=== PATIENT | male | born 1930 | race Two or more races ===

== ENCOUNTER 2016-10-18 19:46 | Emergency (ER) | payer OTHER ==
[2016-10-18 20:00] VITALS: RESP 16; TEMP 97.3; O2SAT 95
[2016-10-18] MEDS ORDERED: ONDANSETRON 4 MG/2 ML VIAL IVP ONE (20:05)
[2016-10-18] MEDS ORDERED: NS 1,000 ML IV ONE (20:05)
--- NOTE | 2016-10-18 20:08 | EDPHY ---
H & P Stated Complaint: N/V/D x 2 weeks, decreased appetite, loss of weight. Time Seen by Provider: 10/18/16 19:56 HPI/ROS: CHIEF COMPLAINT: Weakness and vomiting History by patient and his daughter HISTORY OF PRESENT ILLNESS: 86-year-old man with diabetes and hypertension who presents complaining of 2 or more weeks of increasing generalized weakness, malaise, poor appetite with nausea and vomiting almost every time that he eats. He has lost up to 30 lb over the last 2-4 weeks. He denies any fever or night sweats. His daughter thought he had some chills this afternoon. Today he was unable to keep down even broth. He denies any abdominal pain with this. He said when symptoms began a few weeks ago he did have some diarrhea but this is resolved. He denies any hematemesis or melena or hematochezia. Denies any fever or night sweats. He denies any chest pain, cough or difficulty breathing. His daughter is unsure if he has been taking his blood pressure medicine because of the nausea and vomiting. REVIEW OF SYSTEMS: As in HPI, and all other systems reviewed and are negative Source: Patient, Family - Personal History Current Tetanus Diphtheria and Acellular Pertussis (TDAP): Unsure - Medical/Surgical History Hx Asthma: No Hx Chronic Respiratory Disease: No Hx Diabetes: Yes Hx Cardiac Disease: Yes Hx Renal Disease: No Hx Cirrhosis: No Hx Alcoholism: No Hx HIV/AIDS: No Hx Splenectomy or Spleen Trauma: No Other PMH: DIABETES, HTN - Family History Significant Family History: No pertinent family hx - Social History Smoking Status: Never smoked - Physical Exam Exam: General Appearance: Alert, thin, chronically ill-appearing. Eyes: Pupils equal and round , positive pallor , no injection. ENT, Mouth: Mucous membranes moist but pale Respiratory: Normal, effort, lungs are clear to auscultation. No wheezes, rales or rhonchi. Cardiovascular: Regular rate and rhythm. S1, S2, no murmurs, gallops or rubs appreciated Gastrointestinal: Abdomen is soft and nontender, no masses, bowel sounds normal. Rectal: Normal tone, brown stool, large firm prostate Back: No CVA tenderness, no bony tenderness Neurological: Awake, alert and oriented x 3, no pronator drift, normal gait, no pronator drift Skin: Warm and dry, no rashes. Musculoskeletal: No deformities or tenderness. Extremitie:s full range of motion, no edema Psychiatric: Patient has normal affect, there is no agitation. Constitutional: Initial Vital Signs Temperature (C) 36.3 C 10/18/16 19:57 Heart Rate 65 10/18/16 19:57 Respiratory Rate 16 10/18/16 19:57 Blood Pressure 121/55 H 10/18/16 19:57 O2 Sat (%) 95 10/18/16 19:57 O2 Delivery Mode Room Air Allergies/Adverse Reactions: No Known Allergies Allergy (Unverified 10/18/16 19:56) Home Medications: Medication Instructions Recorded Amlodipine Bes/Olmesartan Med 1 each PO 04/19/11 [Abhishek 10-40 mg Tablet] SITAGLIPTIN PHOS/METFORMIN HCL 1 each PO 04/19/11 [Janumet 50-1,000 Mg Tablet] Ondansetron Odt [Zofran Odt 4 mg 4 mg PO Q4 PRN #12 tab 10/18/16 (*)] Medical Decision Making - Diagnostics Imaging Results: Imaging Impressions Abdomen CT 10/18/16 20:05 Impression: 1. Nonspecific mild reticular interstitial changes at the lung bases. 2. Tiny inferior pericardial effusion. 3. Query mild gastric fundal wall thickening. Correlation with endoscopy may be of benefit. 4. Probable hepatic and renal cortical tiny cysts. 5. Mild constipation, with no CT evidence of enterocolitis. 6. Pronounced prostatomegaly with some urinary bladder wall thickening. Findings were discussed with Leann Ann MD at 21:29, on 10/18/2016. Chest X-Ray 10/18/16 20:05 Impression: 1. COPD. 2. Probable nipple artifact on the left, however confirmation with nipple markers is suggested. 3. Rightward tracheal deviation, suggestive of underlying thyromegaly. As clinically directed, correlation with thyroid sonography may be of benefit. Findings were discussed with Leann Ann MD at 21:33, on 10/18/2016. ED Course/Re-evaluation: 86-year-old man presents with nausea, vomiting and weight loss for several weeks and possibly several months. Although the patient appears thin and chronically ill labs are unremarkable and he is hemodynamically stable. Patient is slightly anemic compared to prior but there is no evidence of any active ongoing GI bleeding. CT scan showed no obvious cause of his symptoms. Patient was given IV fluids and Zofran after which she was feeling better and sane he wanted to eat. Patient's daughter is willing to take him home with her. I am recommending close follow-up with his primary care physician and with email marketing executive for possible scope given his upper GI symptoms and weight loss. Patient and his daughter understand this plan. - Data Points Laboratory Results: Laboratory Results 10/18/16 20:20 10/18/16 20:20 10/18/16 10/18/16 10/18/16 21:20 21:10 20:20 WBC RBC Hgb Hct MCV MCH MCHC RDW Plt Count MPV Neut % (Auto) Lymph % (Auto) [place] % (Auto) Eos % (Auto) Baso % (Auto) Nucleat RBC Rel Count Absolute Neuts (auto) Absolute Lymphs (auto) Absolute Monos (auto) Absolute Eos (auto) Absolute Basos (auto) Absolute Nucleated RBC Immature Gran % Immature Gran # Sodium 139 mEq/L mEq/L (134-144) Potassium 4.3 mEq/L mEq/L (3.5-5.2) Chloride 101 mEq/L mEq/L (97-110) Carbon Dioxide 25 mEq/l mEq/l (22-31) Anion Gap 13 mEq/L mEq/L (8-16) BUN 30 mg/dL H mg/dL (7-23) Creatinine 0.8 mg/dL mg/dL (0.7-1.3) Estimated GFR > 60 Glucose 128 mg/dL H mg/dL (70-100) Calcium 9.4 mg/dL mg/dL (8.5-10.4) Total Bilirubin 0.6 mg/dL mg/dL (0.1-1.4) Conjugated Bilirubin 0.3 mg/dL mg/dL (0.0-0.5) Unconjugated Bilirubin 0.3 mg/dL mg/dL (0.0-1.1) AST 23 IU/L IU/L (17-59) ALT 32 IU/L IU/L (21-72) Alkaline Phosphatase 41 IU/L IU/L (38-126) Total Protein 6.7 g/dL g/dL (6.3-8.2) Albumin 4.0 g/dL g/dL (3.5-5.0) Lipase 20 IU/L L IU/L (23-300) Urine Color YELLOW Urine Appearance CLEAR Urine pH 5.5 (5.0-7.5) Ur Specific [place] 1.020 (1.002-1.030) Urine Protein NEGATIVE (NEGATIVE) Urine Ketones NEGATIVE (NEGATIVE) Urine Blood NEGATIVE (NEGATIVE) Urine Nitrate NEGATIVE (NEGATIVE) Urine Bilirubin NEGATIVE (NEGATIVE) Urine Urobilinogen 0.2 EU EU (0.2-1.0) Ur Leukocyte Esterase NEGATIVE (NEGATIVE) Urine Glucose NEGATIVE (NEGATIVE) Stool Occult Bld Scrn NEGATIVE (NEGATIVE) 10/18/16 20:20 WBC 7.97 10^3/uL 10^3/uL (3.80-9.50) RBC 4.01 10^6/uL L 10^6/uL (4.40-6.38) Hgb 12.3 g/dL L g/dL (13.7-17.5) Hct 36.3 % L % (40.0-51.0) MCV 90.5 fL fL (81.5-99.8) MCH 30.7 pg pg (27.9-34.1) MCHC 33.9 g/dL g/dL (32.4-36.7) RDW 13.2 % % (11.5-15.2) Plt Count 205 10^3/uL 10^3/uL (150-400) MPV 10.5 fL fL (8.7-11.7) Neut % (Auto) 84.3 % H % (39.3-74.2) Lymph % (Auto) 8.9 % L % (15.0-45.0) [place] % (Auto) 5.8 % % (4.5-13.0) Eos % (Auto) 0.4 % L % (0.6-7.6) Baso % (Auto) 0.3 % % (0.3-1.7) Nucleat RBC Rel Count 0.0 % % (0.0-0.2) Absolute Neuts (auto) 6.73 10^3/uL H 10^3/uL (1.70-6.50) Absolute Lymphs (auto) 0.71 10^3/uL L 10^3/uL (1.00-3.00) Absolute Monos (auto) 0.46 10^3/uL 10^3/uL (0.30-0.80) Absolute Eos (auto) 0.03 10^3/uL 10^3/uL (0.03-0.40) Absolute Basos (auto) 0.02 10^3/uL 10^3/uL (0.02-0.10) Absolute Nucleated RBC 0.00 10^3/uL 10^3/uL (0-0.01) Immature Gran % 0.3 % % (0.0-1.1) Immature Gran # 0.02 10^3/uL 10^3/uL (0.00-0.10) Sodium Potassium Chloride Carbon Dioxide Anion Gap BUN Creatinine Estimated GFR Glucose Calcium Total Bilirubin Conjugated Bilirubin Unconjugated Bilirubin AST ALT Alkaline Phosphatase Total Protein Albumin Lipase Urine Color Urine Appearance Urine pH Ur Specific [place] Urine Protein Urine Ketones Urine Blood Urine Nitrate Urine Bilirubin Urine Urobilinogen Ur Leukocyte Esterase Urine Glucose Stool Occult Bld Scrn Medications Given: Discontinued Medications Sodium Chloride (Ns) 1,000 mls @ 0 mls/hr IV EDNOW ONE; Wide Open PRN Reason: Protocol Stop: 10/18/16 20:06 Last Admin: 10/18/16 20:10 Dose: 1,000 mls Ondansetron HCl (Zofran) 4 mg IVP EDNOW ONE Stop: 10/18/16 20:06 Last Admin: 10/18/16 20:10 Dose: 4 mg Departure - Departure Disposition: Home, Routine, Self-Care Clinical Impression: Weight loss, non-intentional Nausea & vomiting Qualifiers: Vomiting type: unspecified Vomiting Intractability: non-intractable Qualified Code(s): R11.2 - Nausea with vomiting, unspecified Condition: Fair Instructions: Acute Nausea and Vomiting (ED) Additional Instructions: You were seen by Dr. Leann Ann today. We have not found the cause of your symptoms today. You may use Zofran for nausea and vomiting. Please follow-up with your primary care physician as well as gastroenterology specialist, Dr. Mascorro. Return for any worsening or new concerns. Referrals: Deep Laughlin DO [Primary Care Provider] - As per Instructions Vaughn Mascorro MD, FACG [Medical Doctor] - As per Instructions Prescriptions: Ondansetron Odt [Zofran Odt 4 mg (*)] 4 mg PO Q4 PRN #12 tab PRN Reason: nausea
[2016-10-18] MEDS ORDERED: IOPAMIDOL (ISOVUE-300) 100 ML BTL ONE (20:19)
[2016-10-18 20:30] LABS: % IMMATURE GRANULYOCYTES 0.3 % (0.0-1.1); ABSOLUTE IMMATURE GRANULOCYTES 0.02 10^3/uL (0.00-0.10); ADD DIFF? NO; ADD MORPH? NO; ADD SCAN? NO; ATYPICAL LYMPHOCYTE FLAG 0 (0-99); FRAGMENT RBC FLAG 0 (0-99); HEMATOCRIT 36.3 % (40.0-51.0); HEMOGLOBIN 12.3 g/dL (13.7-17.5); LEFT SHIFT FLG 0 (0-99); LIPEMIA HEMOLYSIS FLAG 90 (0-99); MEAN CELL HEMOGLOBIN 30.7 pg (27.9-34.1); MEAN CELL HEMOGLOBIN CONCENTR. 33.9 g/dL (32.4-36.7); MEAN CELL VOLUME 90.5 fL (81.5-99.8); MEAN PLATELET VOLUME 10.5 fL (8.7-11.7); PLATELET CLUMPS FLAG 0 (0-99); PLATELET COUNT 205 10^3/uL (150-400); RED BLOOD CELL COUNT 4.01 10^6/uL (4.40-6.38); RED CELL DISTRIBUTION WIDTH 13.2 % (11.5-15.2)
[2016-10-18 20:42] LABS: ALANINE AMINOTRANSFERASE 32 IU/L (21-72); ALKALINE PHOSPHATASE 41 IU/L (38-126); ANION GAP 13 mEq/L (8-16); ASPARTATE AMINOTRANSFERASE 23 IU/L (17-59); BILIRUBIN,TOTAL 0.6 mg/dL (0.1-1.4); BILIRUBIN-CONJUGATED 0.3 mg/dL (0.0-0.5); BILIRUBIN-UNCONJUGATED 0.3 mg/dL (0.0-1.1); CALCIUM 9.4 mg/dL (8.5-10.4); CARBON DIOXIDE 25 mEq/l (22-31); CHLORIDE 101 mEq/L (97-110); CREATININE 0.8 mg/dL (0.7-1.3); GLOMERULAR FILTRATION RATE > 60; GLUCOSE 128 mg/dL (70-100); POTASSIUM 4.3 mEq/L (3.5-5.2); SODIUM 139 mEq/L (134-144); TOTAL PROTEIN 6.7 g/dL (6.3-8.2)
[2016-10-18 21:14] LABS: COLOR YELLOW; LEUKOCYTE ESTERASE,URINE NEGATIVE (NEGATIVE); NITRITE,URINE NEGATIVE (NEGATIVE); PH,URINE 5.5 (5.0-7.5)
[2016-10-18 21:57] VITALS: BP 125/65; PULSE 68
[2016-10-18] MEDS ORDERED: ONDANSETRON 4MG PREPACK#2 BTL TAKEHOME ONE (21:58)
== END 2016-10-18 22:08 | disposition home or self-care (01) ==
LOC: CED 19:46
DX: R11.2 Nausea with vomiting, unspecified (principal); R63.4 Abnormal weight loss; E86.9 Volume depletion, unspecified; E11.9 Type 2 diabetes mellitus without complications; I10 Essential (primary) hypertension; Z79.84 Long term (current) use of oral hypoglycemic drugs
CPT/HCPCS: 71020; 74177; 96361; 96374; 99285; J2405; Q9967; 80048-PO; 80076-PO; 81003-PO; 82270-PO; 82947-QW; 83690-PO; 85025-PO

== ENCOUNTER → 2017-01-12 | Outpatient (CLI) | payer OTHER ==
[~2017-01-12] MED LIST: IOPAMIDOL (ISOVUE-300) 100 ML BTL ONE
== END ==
LOC: CIMAGING 11:27
PROVIDERS: ATTEND Family Medicine
DX: J98.4 Other disorders of lung (principal); K44.9 Diaphragmatic hernia without obstruction or gangrene; K76.9 Liver disease, unspecified; K86.89 Other specified diseases of pancreas; N40.0 Benign prostatic hyperplasia without lower urinary tract symptoms; M51.36 Other intervertebral disc degeneration, lumbar region
CPT/HCPCS: 74177; Q9967

== ENCOUNTER → 2017-04-15 | Outpatient (CLI) | payer OTHER | LOC: CIMAGING 11:44 | PROVIDERS: ATTEND Family Medicine | DX: R26.81 Unsteadiness on feet (principal); R54 Age-related physical debility | CPT/HCPCS: 70450-PO ==